=== PATIENT | female | born 1995 | race Caucasian/White ===

== ENCOUNTER 2019-07-28 14:39 | Outpatient (REF) | payer MEDICARE, MEDICAID, SELFPAY ==
[2019-07-28 21:10] LABS: TSH (W/Ref FT4) 2.69 uIU/mL (0.36-3.74)
== END 2019-07-28 14:59 ==
LOC: NCHCN 14:39
PROVIDERS: PCP Family Medicine; Visit Provider Family Medicine
DX: R53.1 Weakness (principal); R53.83 Other fatigue; M79.10 Myalgia, unspecified site
CPT/HCPCS: 82306; 84443

== ENCOUNTER 2021-09-25 17:48 | Outpatient (REF) | payer MEDICARE, MEDICAID, SELFPAY ==
[2021-09-27 11:10] LABS: HSV 1 DNA Result Negative (Negative); HSV 2 DNA Result Negative (Negative); Varicella Zoster DNA Result Negative ((See Note))
== END 2021-09-25 17:49 | disposition home or self-care (01) ==
LOC: NCHCN 17:48
PROVIDERS: PCP Family Medicine; Visit Provider Internal Medicine
DX: B00.1 Herpesviral vesicular dermatitis (principal)
CPT/HCPCS: 87529; 87798

== ENCOUNTER 2021-12-19 16:17 | Outpatient (REF) | payer MEDICARE, MEDICAID, SELFPAY ==
--- NOTE | 2021-12-19 16:00 | PAPFT_PTH ---
PATIENT: Lidia Sibley LOC: [facility] U#:[id number] AGE/SX: 26/F ROOM: RE12/19/[address]: Harsh Valerio : 1995 BED: DIS: 12/19/2021 SPEC #: [id number] RECD: 12/20/21 13:00 STATUS: MITCH RENando #: [id number] JESÚS: 12/19/21 16:[address]: Harsh Valerio DEPT: [facility] Cytology RECD BY: Christen Alvarez Tissues: 1 - CX/ENDOCX FOR PAP SMEARS Procedures: PAP THIN PREP/[facility] Screening Comments: [id number]
== END 2021-12-19 16:18 | disposition home or self-care (01) ==
LOC: NCHCN 16:17
PROVIDERS: PCP Family Medicine; Visit Provider Family Medicine
DX: Z12.4 Encounter for screening for malignant neoplasm of cervix (principal)
CPT/HCPCS: 88142